=== PATIENT | male | born 1995 | race Caucasian/White ===

== ENCOUNTER 2022-02-23 13:28 | Emergency (ER) | payer OTHER, SELFPAY ==
[2022-02-23 13:38] VITALS: BP 140/69; PULSE 93; RESP 18; TEMP 37.2; O2SAT 100
--- NOTE | 2022-02-23 13:59 | ED.URI ---
HPI - URI/Sore Throat General Chief Complaint: Upper Respiratory Infection Stated Complaint: Sore Throat,Bilateral Ear Irritation Source: patient Mode of arrival: ambulatory History of Present Illness HPI Narrative: This is a 26-year-old male who presented [facility] with complaints of a sore throat, swollen lymph nodes and congestion that started on Sunday. According to patient he went to several clubs on Sunday and is unaware whether night he came in contact with someone was positive. The patient denies SOB, CP, palpitation, extremity numbness, lightheadedness, dizziness, constipation, diarrhea, chills, or fever. Related Data Allergies Allergy/AdvReac Type Severity Reaction Status Date / Time No Known Allergies Allergy Mild Verified 02/23/22 13:34 Review of Systems Review of Systems: A 14 organ system Review of Systems was performed and pertinent positives included in the HPI, otherwise remaining ROS is negative. Exam Narrative: GENERAL: This is a well-nourished, well-developed patient, in no apparent distress. HEAD: normocephalic, atraumatic. Swollen lymph nodes EYES: PERRL. Sclera clear/white. Vision is grossly intact. EARS: External ears normal, auditory canals clear and without drainage, TMs normal without perforation. Hearing grossly intact. NOSE: External nose normal with no obvious nasal discharge, nares without redness, no rhinorrhea. THROAT: Mucous membranes moist, posterior pharynx with erythema and enlarged tonsils NECK: Neck supple, non-tender without lymphadenopathy, masses or thyromegaly. CARDIOVASCULAR: Regular rate and rhythm without murmurs, gallops, or rubs. RESPIRATORY: Clear to auscultation. Breath sounds equal bilaterally. No wheezes, rales, or rhonchi. GASTROINTESTINAL: Abdomen soft, non-tender, nondistended. Bowel sounds are active. No hepato-splenomegaly, or palpable masses. No guarding. SKIN: warm, intact with no suspicious lesions or rash, good texture and turgor. NEURO: awake, alert, and oriented to person, place and time. There were no obvious focal neurologic abnormalities. EXTREMITIES: Normal range of motion. No edema. No calf tenderness. Course Course Level of Care: Express Care Visit Vital Signs Vital signs: Vital Signs Temperature 98.9 F 02/23/22 13:38 Pulse Rate 93 02/23/22 13:38 Respiratory Rate 18 02/23/22 13:38 Blood Pressure 140/69 02/23/22 13:38 Pulse Oximetry 100 02/23/22 13:38 Oxygen Delivery Room Air 02/23/22 13:38 Temperature 98.9 F 02/23/22 13:38 Pulse Rate 93 02/23/22 13:38 Respiratory Rate 18 02/23/22 13:38 Blood Pressure 140/69 02/23/22 13:38 Pulse Oximetry 100 02/23/22 13:38 Oxygen Delivery Room Air 02/23/22 13:38 MDM - URI/Sore Throat MDM Narrative Medical decision making narrative: Patient will be treated for pharyngitis unable to test for strep he will go home with Augmentin Discharge Plan Discharge Clinical Impression: Pharyngitis Patient Disposition: Home, Self-Care Condition: Stable Instructions: Antibiotic Form, Pharyngitis (ED) Additional Instructions: -Eat things that are easy to swallow, like tea or soup, or popsicles to suck on. -Oral rinses such as: Salt water gargles and/or may use topical anesthetic (eg. Chloraseptic spray) or lozenges to relieve dryness or throat pain. -Take tylenol and ibuprofen as needed for pain and fever as directed. -Frequent hand washing or hand veneer taper is one of the best ways to prevent spread of infection. -Follow up with primary care provider in 2-3 days if condition is not improving or seek ER visit if your child starts breathing fast/has trouble breathing, is not drinking enough fluids, muffle voice, difficulty opening the mouth or will not wake up or will not interact with you. Prescriptions: New amoxicillin-pot clavulanate [Augmentin] 500-125 mg tablet 1 tablet PO Q12H 7 Days Qty: 14 0RF Claritin 10 mg tablet,chewable 10 mg PO DAILY
== END 2022-02-23 14:00 | disposition home or self-care (01) ==
PROVIDERS: Emergency Provider Nurse Practitioner
DX: J02.9 Acute pharyngitis, unspecified (principal); Z20.822 Contact with and (suspected) exposure to COVID-19
CPT/HCPCS: 87426; 99213; C9803; G0463